=== PATIENT | female | born 1980 | race Caucasian/White ===

== ENCOUNTER 2019-03-28 12:20 | Emergency (ER) | payer OTHER ==
[2019-03-28] MEDS ORDERED: DEXAMETHASONE 10 MG/ML VIAL PO STA (13:04)
[2019-03-28] MEDS ORDERED: CHERRY SYRUP 10 ML UDC PO ONE (13:04)
--- NOTE | 2019-03-28 13:06 | ED Physician Documentation ---
PD HPI URI - Stated complaint Stated Complaint: SORE THROAT/BODY ACHES - Chief complaint Chief Complaint: Heent - History obtained from History obtained from: Patient - History of Present Illness Timing - onset: Yesterday Timing duration: Days (2) Timing details: Gradual onset Pain level max: 6 Pain level now: 6 Associated symptoms: Sore throat. 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) Improves by: Nothing Worsened by: Other (swallowing) Recently seen: Not recently seen Review of Systems Constitutional: denies: Fever, Chills Cardiac: denies: Chest pain / pressure Respiratory: denies: Cough GI: denies: Vomiting, Diarrhea Skin: denies: Rash Musculoskeletal: denies: Neck pain, Back pain Neurologic: denies: Headache PD PAST MEDICAL HISTORY - Past Medical History Past Medical History: Yes Psych: Anxiety - Past Surgical History Past Surgical History: Yes - Social History Does the pt smoke?: No Smoking Status: Never smoker Does the pt drink ETOH?: Yes Does the pt have substance abuse?: No - Immunizations Immunizations are current?: Yes - POLST Patient has POLST: No PD ED PE NORMAL - Vitals Vital signs reviewed: Yes - General General: Alert and oriented X 3, No acute distress - HEENT HEENT: Moist mucous membranes, Other (Posterior pharyngeal erythema without tonsillar exudates. Uvula midline. No trismus. Normal phonation.) - Neck Neck: Supple, no meningeal sign, No adenopathy - Cardiac Cardiac: RRR - Respiratory Respiratory: No respiratory distress, Clear bilaterally - Abdomen Abdomen: Soft, Non tender, Non distended - Derm Derm: Warm and dry, No rash - Neuro Neuro: Alert and oriented X 3 - Psych Psych: Normal mood, Normal affect Results - Vitals Vitals: Vital Signs - 24 hr 03/28/19 03/28/19 12:28 13:37 Temperature 37.1 C Heart Rate 108 H 98 Respiratory 18 14 Rate Blood Pressure 129/71 124/82 H O2 Saturation 96 96 Oxygen O2 Source Room air - Labs Labs: Laboratory Tests 03/28/19 12:33 Group A Strep Rapid Negative PD MEDICAL DECISION MAKING - ED course Complexity details: reviewed results, considered differential, d/w patient ED course: Rapid strep is negative. She is well-appearing, nontoxic. Afebrile. Given dexamethasone. We will have her follow-up with her doctor for further care. Will hold antibiotics pending throat culture. Patient counseled regarding signs and symptoms for which I believe and urgent re-evaluation would be necessary. Patient with good understanding of and agreement to plan and is comfortable going home at this time This document was made in part using voice recognition software. While efforts are made to proofread this document, sound alike and grammatical errors may occur. No evidence of peritonsillar or retropharyngeal abscess Departure - Departure Disposition: 01 Home, Self Care Clinical Impression: Sore throat Condition: Good Instructions: ED Pharyngitis Viral Follow-Up: your,doctor in 1 week if not better [Other] Comments: Your rapid strep test is negative. Return if you worsen. Drink plenty of fluids and rest. A throat culture was also sent and if this is positive, we will call you for antibiotics. Forms: Activity restrictions Discharge Date/Time: 03/28/19 13:38
[2019-03-28 13:38] VITALS: BP 124/82
== END 2019-03-28 13:38 | disposition home or self-care (01) ==
LOC: ED 12:20
DX: J02.9 Acute pharyngitis, unspecified (principal)
CPT/HCPCS: 87070; 87077; 87430; 99283; 99284

== ENCOUNTER 2019-06-29 14:47 | Emergency (ER) | payer OTHER ==
[2019-06-29 14:59] VITALS: BP 102/63
[2019-06-29 15:20] LABS: RAPID STREP SCREEN Negative (Negative)
--- NOTE | 2019-06-29 16:06 | ED Physician Documentation ---
PD HPI URI - Stated complaint Stated Complaint: SORE THROAT,COUGH,CP,MENDES - Chief complaint Chief Complaint: Heent - History obtained from History obtained from: Patient - History of Present Illness Timing - onset: How many days ago (2) Timing duration: Days (2) Timing details: Abrupt onset, Still present Associated symptoms: Fever, Chills, Sweats, Nasal congestion, Rhinorrhea, Sore throat, Dry cough Contributing factors: Sick contact Improves by: Rest, Medication Similar symptoms before: Has not had sx before Recently seen: Not recently seen - Additional information Additional information: 38-year-old female began to feel some aches and pains and fever beginning 2 days ago. She has developed nasal congestion cough sore throat headache fever and myalgias and arthralgias. Review of Systems Constitutional: reports: Fever, Chills, Myalgias, Fatigue Eyes: denies: Decreased vision Ears: denies: Ear pain Nose: reports: Rhinorrhea / runny nose, Congestion Throat: reports: Sore throat Cardiac: denies: Chest pain / pressure, Palpitations Respiratory: reports: Cough. 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 - Present Medications Home Medications: Ambulatory Orders Medication Instructions Recorded Confirmed Oseltamivir [Tamiflu] 75 mg PO BID #10 capsule 06/29/19 QUEtiapine [SEROquel] 06/29/19 - Allergies Allergies/Adverse Reactions: Allergies Allergy/AdvReac Type Severity Reaction Status Date / Time amoxicillin [From Augmentin] Allergy Unknown Verified 06/29/19 14:59 clavulanic acid Allergy Unknown Verified 06/29/19 14:59 [From Augmentin] cefuroxime [From Ceftin] AdvReac Unknown Verified 06/29/19 14:59 - Social History Does the pt smoke?: No Smoking Status: Never smoker Does the pt drink ETOH?: Yes Does the pt have substance abuse?: No - Immunizations Immunizations are current?: Yes - POLST Patient has POLST: No PD ED PE NORMAL - Vitals Vital signs reviewed: Yes (Febrile and tachycardic) - General General: No acute distress, Well developed/nourished - HEENT HEENT: Atraumatic, PERRL, EOMI, Ears normal, Moist mucous membranes, Pharynx benign - Neck Neck: Supple, no meningeal sign, No bony TTP - Cardiac Cardiac: No murmur, Other (tachy to 110) - Respiratory Respiratory: No respiratory distress, Clear bilaterally - Abdomen Abdomen: Soft, Non tender - Back Back: No CVA TTP, No spinal TTP - Derm Derm: Normal color, Warm and dry, No rash - Extremities Extremities: No deformity, No edema, No calf tenderness / cord - Neuro Neuro: Alert and oriented X 3, emergency manager 2-12 intact, No motor deficit, No sensory deficit, Normal speech Eye Opening: Spontaneous Motor: Obeys Commands Verbal: Oriented GCS Score: 15 - Psych Psych: Normal mood, Normal affect Results - Vitals Vitals: Vital Signs - 24 hr 06/29/19 14:57 Temperature 38.4 C H Heart Rate 116 H Respiratory 17 Rate Blood Pressure 102/63 O2 Saturation 97 Oxygen O2 Source Room air - Labs Labs: Laboratory Tests 06/29/19 06/29/19 15:04 15:04 Influenza A (Rapid) POSITIVE H Influenza B (Rapid) Negative Group A Strep Rapid Negative PD MEDICAL DECISION MAKING - ED course Complexity details: reviewed old records, reviewed results, re-evaluated patient, considered differential, d/w patient, d/w family ED course: 38-year-old female with cough congestion fever sore throat and arthralgias has influenza A and she is administered dexamethasone 10 mg orally here in the emergency department as well as Tylenol and we will place her on a course of Tamiflu and give her a note for work for 5 days. Departure - Departure Disposition: 01 Home, Self Care Clinical Impression: Influenza A Condition: Stable Instructions: ED Flu Follow-Up: [facility] [Provider Group] Prescriptions: Oseltamivir [Tamiflu] 75 mg PO BID #10 capsule Forms: Activity restrictions
[2019-06-29] MEDS ORDERED: CHERRY SYRUP 10 ML UDC PO ONE (16:23)
[2019-06-29] MEDS ORDERED: DEXAMETHASONE 10 MG/ML VIAL PO STA (16:23)
== END 2019-06-29 16:44 | disposition home or self-care (01) ==
LOC: ED 14:47
DX: J10.1 Influenza due to other identified influenza virus with other respiratory manifestations (principal)
CPT/HCPCS: 87070; 87275; 87276; 87430; 99283; 99284; A9270

== ENCOUNTER 2022-10-24 01:41 | Outpatient (CLI) | payer OTHER | END 2022-10-24 01:45 | disposition critical access hospital (66) | LOC: EMS 01:41 | DX: F41.9 Anxiety disorder, unspecified (principal); R20.2 Paresthesia of skin; R25.2 Cramp and spasm; R41.82 Altered mental status, unspecified | CPT/HCPCS: A0425; A0429 ==

== ENCOUNTER 2022-10-24 01:58 | Emergency (ER) | payer SELFPAY ==
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
[2022-10-24] MEDS: LORazepam 1 MG TABLET PO STA ×2 (03:03→16:27)
[2022-10-24 06:32] LABS: BASOPHILS % (AUTO) 0.2 %; HCT - HEMATOCRIT 41.6 % (37.0-47.0); HGB - HEMOGLOBIN 14.3 g/dL (12.0-16.0); LYMPHOCYTES # (AUTO) 1.7 10^3/uL (1.5-3.5); LYMPHOCYTES % (AUTO) 15.3 %; MEAN CORPUSCULAR HEMOGLOBIN 30.8 pg (27.0-31.0); MEAN CORPUSCULAR HGB CONC 34.4 g/dL (32.0-36.0); MEAN CORPUSCULAR VOLUME 89.5 fL (81.0-99.0); MEAN PLATELET VOLUME 9.7 fL (7.9-10.8); MONOCYTES # (AUTO) 0.5 10^3/uL (0.0-1.0); MONOCYTES % (AUTO) 4.5 %; NEUTROPHILS # (AUTO) 8.8 10^3/uL (1.5-6.6); NEUTROPHILS % (AUTO) 79.6 %; PLT - PLATELET COUNT 279 10^3/uL (130-450); RED BLOOD COUNT 4.65 10^6/uL (4.20-5.40); RED CELL DISTRIBUTION WIDTH 11.8 % (12.0-15.0); WHITE BLOOD COUNT 11.1 x10^3/uL (4.8-10.8)
[2022-10-24 06:47] LABS: ACETAMINOPHEN < 10 ug/mL (10-30); ALBUMIN 4.8 g/dL (3.2-5.5); ALBUMIN/GLOBULIN RATIO 1.3 (1.0-2.2); ALKALINE PHOSPHATASE 74 IU/L (42-121); ALT ALANINE AMINOTRANSFERASE 15 IU/L (10-60); AST ASPARTATE AMINOTRANSFERASE 20 IU/L (10-42); BILIRUBIN,TOTAL 0.7 mg/dL (0.2-1.0); BUN - BLOOD UREA NITROGEN 17 mg/dL (6-20); CALCIUM 9.4 mg/dL (8.5-10.3); CARBON DIOXIDE - CO2 22 mmol/L (21-32); CHLORIDE 106 mmol/L (101-111); CK- CREATINE KINASE 95 IU/L (22-269); CREATININE 0.8 mg/dL (0.4-1.0); ETOH - ETHANOL < 5.0 mg/dL; GFR - MDRD 78 (>89); GLUCOSE 124 mg/dL (70-100); LIPASE 28 U/L (22-51); MAGNESIUM 2.3 mg/dL (1.7-2.8); SALICYLATE < 6.0 mg/dL; SODIUM 138 mmol/L (135-145); TOTAL PROTEIN 8.5 g/dL (6.7-8.2)
[2022-10-24 08:30] LABS: MUDS CUTOFF CONCENTRATIONS CUTOFF CONC BELOW:
[2022-10-24 08:37] LABS: BILIRUBIN,URINE NEGATIVE (NEGATIVE); GLUCOSE, URINE (UA) NEGATIVE (NEGATIVE); KETONES,URINE (UA) 40 mg/dL (NEGATIVE); LEUKOCYTE ESTERASE, URINE NEGATIVE (NEGATIVE); NITRITE,URINE NEGATIVE (NEGATIVE); OCCULT BLOOD,URINE NEGATIVE (NEGATIVE); PROTEIN,URINE TRACE mg/dL (NEGATIVE); UROBILINOGEN,URINE 0.2 (NORMAL) E.U./dL (NORMAL)
[2022-10-24 08:38] LABS: CLARITY,URINE CLEAR (CLEAR)
[2022-10-24 08:45] LABS: AMPHETAMINE SCREEN,URINE NEGATIVE (NEGATIVE); BARBITURATE SCREEN,UR NEGATIVE (NEGATIVE); BENZODIAZEPINES SCREEN, URINE NEGATIVE (NEGATIVE); COCAINE SCREEN URINE NEGATIVE (NEGATIVE); METHADONE SCREEN, URINE NEGATIVE (NEGATIVE); METHAMPHETAMINES SCREEN, URINE NEGATIVE (NEGATIVE); OPIATE SCREEN, URINE NEGATIVE (NEGATIVE); OXYCODONE SCREEN, URINE NEGATIVE (NEGATIVE); PROPOXYPHENE SCREEN, URINE NEGATIVE (NEGATIVE); THC CANNABINOID SCREEN, URINE NEGATIVE (NEGATIVE); TRICYCLIC ANTIDEPRESSANT,URINE NEGATIVE (NEGATIVE)
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
[2022-10-24] MEDS ORDERED: LORazepam 0.5 MG TABLET PO STA (11:41)
[2022-10-24] MEDS ORDERED: LORazepam 1 MG TABLET PO STA (16:31)
--- NOTE | 2022-10-24 18:56 | ED Physician Documentation ---
ED Addendum - Addendum Addendum: 10/24/22 18:55 42[facility]. She is voluntary. [employer] forms completed. This document was made in part using voice recognition software. While efforts are made to proofread this document, sound alike and grammatical errors may occur. Departure - Departure Disposition: [facility] Psych Hosp/Unit DC/Xfer Clinical Impression: Psychiatric symptoms, Anxiety attack Condition: Stable
[2022-10-25 04:50] VITALS: BP 165/106
== END 2022-10-25 04:50 ==
LOC: EDUNIT# → ED 01:58
DX: F41.9 Anxiety disorder, unspecified (principal); Z79.899 Other long term (current) drug therapy
CPT/HCPCS: 36415; 80053; 80306; 80307; 80320; 80329; 81003; 82550; 83690; 83735; 84443; 85025; 87635; 99284; 99285; J8499; 81001; 87086